=== PATIENT | female | born 1980 | race Caucasian/White ===

== ENCOUNTER 2018-06-11 12:25 | Emergency (ER) | payer OTHER ==
[2018-06-11] MEDS ORDERED: HYDROcodone/Acetaminophen 5/325 mg Tablet ONE (14:02)
--- NOTE | 2018-06-11 14:08 | RAD ---
LEFT HIP TWO VIEWS: History: Fall, pain. FINDINGS: Contour of the femoral head is maintained. Joint spaces are preserved. No fracture. Visualized bony p yamilet is unremarkable. IMPRESSION: No post-traumatic change. POS: [facility]
== END 2018-06-11 14:10 | disposition home or self-care (01) ==
LOC: ERS 12:25
DX: S70.02XA Contusion of left hip, initial encounter (principal); J45.909 Unspecified asthma, uncomplicated; F32.9 Major depressive disorder, single episode, unspecified; Z79.899 Other long term (current) drug therapy; W01.0XXA Fall on same level from slipping, tripping and stumbling without subsequent striking against object, initial encounter